=== PATIENT | female | born 1995 | race Hispanic/Latino ===

== ENCOUNTER → 2020-11-09 | Outpatient (CLI) | payer OTHER ==
[~2020-11-09] MED LIST: ISOVUE-370 76% 100ML VIAL As Ordered ONE; SILVER NITRATE APPLICATOR As Ordered ONE
--- NOTE | 2020-11-09 18:05 | REP ---
INDICATION: INFERTILITY. COMPARISON: None. TECHNIQUE: The endometrium was cannulated and contrast was injected by the attending demo event specialist Dr. Apodaca. Fluoroscopic spot films were acquired by ANASTASIA Davis, under the direct supervision of Dr. Varela. Images reviewed prior to dictation with Dr. Varela. FINDINGS: Fluoroscopy spot radiographs document filling of a normal endometrial cavity. There is normal isthmic and ampullary fallopian tube opacification, and bilateral tubal patency was documented. IMPRESSION: Normal hysterosalpingogram with bilateral tubal patency documented. 0.3 minutes of fluoroscopy time was utilized for this procedure. Some fluoroscopic images are performed with last image hold technology. These images require no additional radiation. <Electronically signed by Dottie Terry > 11/09/20 1617 <Electronically signed by Micky Varela > 11/09/20 1809
== END ==
LOC: M RADPRO 12:23
PROVIDERS: ATTEND Obstetrics & Gynecology
DX: N97.9 Female infertility, unspecified (principal)
CPT/HCPCS: 58340; 74740; Q9967